=== PATIENT | female | born 1975 | race Caucasian/White ===

== ENCOUNTER 2016-07-31 14:54 | Emergency (ER) | payer OTHER ==
--- NOTE | ~2016-07-31 | US85 ---
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 [place], [place] [address] [id number] E MR#: [id number] Acc #: [id number] NAME: MARGE PAINTER : 1975 SEX: F STUDY DATE/TIME: 07/31/2016 13:45 UNIT: [facility] ROOM: STUDY DESCRIPTION: [facility] [employer] Attending Physician: Tai Hassan M.D. Ordering Physician: Tai Hassan M.D. Primary Care Physician: [facility] MEDICAL IMAGING REPORT This report is preliminary unless electronic signature is present EXAM Right lower extremity venous Doppler unilateral HISTORY Right leg pain for 2 days. TECHNIQUE Venous ultrasound examination of the right lower extremity was performed using grayscale, spectral Doppler and color flow Doppler imaging. FINDINGS The examination is negative. There is no evidence of right lower extremity deep venous thrombus from the groin to the lower calf. Visualized greater saphenous vein is also patent. IMPRESSION Negative examination. No evidence of right lower extremity deep venous thrombosis. Dictated by... Bj Gilbert M.D. THIS IS AN ELECTRONICALLY VERIFIED REPORT Bj Gilbert M.D. at 08/01/2016 5:02 PM TEV/psc TD: 07/31/2016 20:37 JOB #: [id number] MEDICAL IMAGING REPORT Page 1 of 1 COPY
--- NOTE | ~2016-07-31 | CR72 ---
[facility] A Service of [facility] & [facility] RADIOLOGY TEXT RESULTS PATIENT: MARGE PAINTER LOCATION: [facility] : 79 UNIT #: [id number] AGE: [address]: Tai Hassan MD SEX: F ORDER DR: [id number] [facility] [address] [place], [place] [address] [id number] MR#: [id number] Acc #: [id number] NAME: MARGE PAINTER : 1975 SEX: F STUDY DATE/TIME: 07/31/2016 12:47 UNIT: [facility] ROOM: STUDY DESCRIPTION: CR Chest Single View Portable Attending Physician: Tai Hassan M.D. Ordering Physician: Tai Hassan M.D. MEDICAL IMAGING REPORT This report is preliminary unless electronic signature is present EXAM AP chest radiograph 07/31/2016 COMPARISON 08/03/2013. HISTORY History supplied is finger as and feet swelling for 3 weeks. FINDINGS An AP view is obtained. The cardiac size is normal and the lungs are clear. CONCLUSION Negative portable chest. Dictated by... Yobany Escobar M.D. THIS IS AN ELECTRONICALLY VERIFIED REPORT Yobany Escobar M.D. at 08/02/2016 2:19 PM Alena TD: 07/31/2016 18:24 JOB #: [id number] MEDICAL IMAGING REPORT Page 1 of 1 COPY
[2016-07-31 13:16] LABS: BASOPHIL# 0.1 X10e3 (0-0.3); BASOPHIL% 1.1 % (0-2.5); EOSINOPHIL# 0.2 X10e3 (0-0.7); EOSINOPHIL% 2.9 % (0.0-7.0); HEMATOCRIT 37.5 % (35.0-45.0); HEMOGLOBIN 12.2 gm/dL (12.0-16.0); LYMPHOCYTE# 2.3 X10e3 (1.0-3.5); LYMPHOCYTE% 41.3 % (17.0-45.0); MEAN CELL VOLUME 98.2 FL (83-96); MEAN CORPUSCULAR HEMOGLOBIN 31.9 PG (28-34); MEAN CORPUSCULAR HGB CONC 32.5 g/dL (30-36); MEAN PLATELET VOLUME 8.3 FL (6.5-11.5); MONOCYTE# 0.3 X10e3 (0-1.0); MONOCYTE% 5.3 % (3.0-12.0); NEUTROPHIL# 2.8 X10e3 (1.5-7.1); NEUTROPHIL% 49.4 % (40-75); PLATELET COUNT 184 X10e3 (140-420); RED BLOOD COUNT 3.82 X10e (3.90-5.30); RED CELL DISTRIBUTION WIDTH 15.4 % (11.0-15.5); WHITE BLOOD COUNT 5.6 X10e3 (4.0-10.5)
[2016-07-31 13:21] LABS: DIFF IND NO
[2016-07-31 13:35] LABS: URINE SOURCE CLEAN CATCH
[2016-07-31 13:48] LABS: ALBUMIN SERUM 3.9 g/dL (3.5-5.0); BILIRUBIN, DIRECT 0.1 mg/dL (0.0-0.2); BILIRUBIN,INDIRECT 0.2 mg/dL (0.0-0.9); BILIRUBIN,TOTAL 0.3 mg/dL (0.2-2.0); CALCIUM SERUM 8.5 mg/dL (8.4-10.2); CREATININE SERUM 1.2 mg/dL (0.6-1.4); GLOM FILT RATE Estimated 57.3 mL/min (>60); POTASSIUM 4.5 mmol/L (3.5-5.1); PROTEIN TOTAL SERUM 6.7 g/dL (6.0-8.3)
[2016-07-31 13:48] LABS: URINE APPEARANCE CLOUDY; URINE BILIRUBIN NEG (NEG); URINE BLOOD NEG (NEG); URINE COLOR YELLOW; URINE GLUCOSE NEG (NEG); URINE KETONE NEG (NEG); URINE LEUKOCYTE ESTERASE 1+ (NEG); URINE NITRATE POS (NEG); URINE PH 8.5 (5-8); URINE PROTEIN TRACE (NEG); URINE SPECIFIC GRAVITY 1.022 (1.003-1.035)
[2016-07-31 13:51] LABS: CULTURE INDICATED? YES; URINE BACTERIA AUWI 4+ (NEGATIVE); URINE SQUAMOUS EPITHELIAL CELL MOD /[HPF]; UWBCS1 AUWI 25-50 (0-5)
[2016-07-31 13:59] LABS: U HYALINE CASTS AUWI 0-2 /[LPF]
[~2016-07-31 14:54] MED LIST: ANSAID100 MG PO; METRONIDAZOLE PO; ULTRAM PO
== END 2016-07-31 15:10 | disposition home or self-care (01) ==
LOC: CED 14:54
PROVIDERS: Emergency Medicine
DX: N39.0 Urinary tract infection, site not specified (principal); E03.9 Hypothyroidism, unspecified; R60.0 Localized edema; G40.909 Epilepsy, unspecified, not intractable, without status epilepticus; F17.200 Nicotine dependence, unspecified, uncomplicated; Z98.51 Tubal ligation status; Z98.890 Other specified postprocedural states
CPT/HCPCS: 36415; 71010; 80048; 80076; 80185; 81003; 83880; 84443; 84703; 85025; 87086; 87088; 87186; 93971; 99284

== ENCOUNTER 2016-12-04 20:41 | Emergency (ER) | payer OTHER ==
[~2016-12-04] VITALS: Ht 160 cm; Wt 57.6 kg
--- NOTE | ~2016-12-04 | EKG ---
PATIENT: MARGE PAINTER UNIT #: [id number] Ventricular Rate: 51 BPM Atrial Rate: 51 BPM P-R Interval: 172 ms QRS Duration: 66 ms Q-T Interval: 382 ms QTC Calculation(Bezet): 352 ms P [place]: 41 degrees Calculated R [place]: 71 degrees Calculated T [place]: 82 degrees Diagnosis Line: Sinus bradycardia Diagnosis Line: Low voltage QRS Diagnosis Line: Nonspecific ST and T wave abnormality Diagnosis Line: Abnormal ECG Diagnosis Line: When compared with ECG of 03-AUG-2013 00:36, Diagnosis Line: Vent. rate has decreased BY 48 BPM Diagnosis Line: QRS voltage has decreased Diagnosis Line: Septal infarct is now Present Diagnosis Line: Nonspecific T wave abnormality now evident in Diagnosis Line: Inferior leads Diagnosis Line: Nonspecific T wave abnormality now evident in Diagnosis Line: Anterolateral leads Diagnosis Line: Confirmed by RILEY KOHLER MD ([id number]) on Diagnosis Line: 12/05/2016 10:34:50 PM INTERPRETING MD: CARLITOS
--- NOTE | ~2016-12-04 | CR72 ---
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 [place], [place] [address] [id number] E MR#: [id number] Acc #: [id number] NAME: MARGE PAINTER : 1975 SEX: F STUDY DATE/TIME: 12/05/2016 UNIT: [facility] ROOM: STUDY DESCRIPTION: CR Chest Single View Portable Attending Physician: Kike Hewitt M.D. Ordering Physician: Kike Hewitt M.D. Primary Care Physician: [facility] MEDICAL IMAGING REPORT This report is preliminary unless electronic signature is present EXAM Portable chest 12/04 21:25 INDICATIONS Midsternal chest pain started today. COMPARISON 07/31/2016 FINDINGS A single AP portable view of the chest shows both lungs to be clear. The heart is normal in size. The mediastinal contour is normal. No significant bone abnormalities are seen. IMPRESSION Normal portable chest. Dictated by... Scotty Gongora Jr., M.D. THIS IS AN ELECTRONICALLY VERIFIED REPORT Scotty Gongora Jr., M.D. at 12/06/2016 4:21 AM CORAL/jono TD: 12/05/2016 08:28 JOB #: [id number] MEDICAL IMAGING REPORT Page 1 of 1 COPY
[2016-12-04 21:40] LABS: BASOPHIL# 0.1 X10e3 (0-0.3); BASOPHIL% 0.7 % (0-2.5); EOSINOPHIL# 0.3 X10e3 (0-0.7); EOSINOPHIL% 3.9 % (0.0-7.0); HEMATOCRIT 32.9 % (35.0-45.0); LYMPHOCYTE# 3.1 X10e3 (1.0-3.5); LYMPHOCYTE% 41.6 % (17.0-45.0); MEAN CORPUSCULAR HEMOGLOBIN 31.7 PG (28-34); MEAN CORPUSCULAR HGB CONC 33.4 g/dL (30-36); MEAN PLATELET VOLUME 7.5 FL (6.5-11.5); MONOCYTE# 0.4 X10e3 (0-1.0); MONOCYTE% 5.4 % (3.0-12.0); NEUTROPHIL# 3.6 X10e3 (1.5-7.1); NEUTROPHIL% 48.4 % (40-75); PLATELET COUNT 221 X10e3 (140-420); RED BLOOD COUNT 3.46 X10e (3.90-5.30); RED CELL DISTRIBUTION WIDTH 20.1 % (11.0-15.5); WHITE BLOOD COUNT 7.5 X10e3 (4.0-10.5)
[2016-12-04 21:44] LABS: DIFF IND NO
[2016-12-04 21:58] LABS: POC - CKMB <1.0 ng/mL (0.0-7.9); POC - TROPONIN <0.05 ng/mL (<=0.05)
[2016-12-04 22:02] LABS: ALBUMIN SERUM 3.9 g/dL (3.5-5.0); ALKALINE PHOSPHATASE 50 U/L (32-92); ALT (SGPT) 24 U/L (10-40); AST (SGOT) 22 U/L (10-42); BILIRUBIN,TOTAL 0.4 mg/dL (0.2-2.0); BLOOD UREA NITROGEN 17 mg/dL (9-23); BUN/CREATININE RATIO 18.88; CALCIUM SERUM 8.7 mg/dL (8.4-10.2); CARBON DIOXIDE 28 mmol/L (22-31); CHLORIDE 104 mmol/L (100-111); CREATININE SERUM 0.9 mg/dL (0.6-1.4); GLOM FILT RATE Estimated 80.6 mL/min (>60); GLUCOSE FASTING 106 mg/dL (70-110); POTASSIUM 3.6 mmol/L (3.5-5.1); PROTEIN TOTAL SERUM 6.9 g/dL (6.0-8.3); SODIUM 139 mmol/L (135-145)
[2016-12-04 22:03] LABS: BILIRUBIN, DIRECT <0.1 mg/dL (0.0-0.2); BILIRUBIN,INDIRECT 0.3 mg/dL (0.0-0.9)
[2016-12-04 23:26] LABS: POC - CKMB <1.0 ng/mL (0.0-7.9); POC - TROPONIN <0.05 ng/mL (<=0.05)
== END 2016-12-05 00:27 | disposition home or self-care (01) ==
LOC: CED 20:41
PROVIDERS: Emergency Medicine
DX: R07.9 Chest pain, unspecified (principal); F17.200 Nicotine dependence, unspecified, uncomplicated; Z79.899 Other long term (current) drug therapy
CPT/HCPCS: 36415; 71010; 80048; 80076; 82553; 84484; 84703; 85025; 93005; 99285